=== PATIENT | female | born 1995 | race Hispanic/Latino ===

== ENCOUNTER 2017-09-15 01:28 | Emergency (ER) | payer SELFPAY ==
[2017-09-15 02:04] VITALS: PULSE 83; O2SAT 99
[2017-09-15 04:48] VITALS: BP 112/69; RESP 16; TEMP 98.2
--- NOTE | 2017-09-15 05:53 | ED PDOC ---
HPI: Psych/Substance Abuse Time Seen by Provider: 09/15/17 02:42 Chief Complaint (Nursing): Alcohol Ingestion Chief Complaint (Provider): Alcohol Intoxication ED Caveat: Intoxicated History Per: Patient History/Exam Limitations: intoxication Onset/Duration Of Symptoms: Hrs Current Symptoms Are (Timing): Still Present Additional Complaint(s): Liliana Campbell is a 21 year old female that was brought in by EMS for unsteady gait after alcohol consumption. Patient states that she was outside of her apartment when she was picked up by EMS. She reports that she bruised her knees but denies any head injury. Of Note: Patient states that she has a sober friend on the way to pick her up. Past Medical History Reviewed: Historical Data, Nursing Documentation, Vital Signs Vital Signs: Last Vital Signs Temp 98.2 F 09/15/17 03:30 Pulse 83 09/15/17 03:30 Resp 16 09/15/17 03:30 BP 112/69 09/15/17 03:30 Pulse Ox 99 09/15/17 03:30 - Medical History PMH: No Chronic Diseases - Family History Family History: States: Unknown Family Hx - Allergies Allergies/Adverse Reactions: Allergies Allergy/AdvReac Type Severity Reaction Status Date / Time No Known Allergies Allergy Verified 09/15/17 02:04 Review of Systems Review Of Systems: ROS cannot be obtained secondary to pt's inabilty to answer questions. Physical Exam - Reviewed Nursing Documentation Reviewed: Yes Vital Signs Reviewed: Yes - Physical Exam Appears: Positive for: Non-toxic, No Acute Distress Head Exam: Positive for: ATRAUMATIC, NORMOCEPHALIC Skin: Positive for: Normal Color, Warm Eye Exam: Positive for: EOMI, Normal appearance, PERRL Cardiovascular/Chest: Positive for: Regular Rate, Rhythm. Negative for: Murmur Respiratory: Positive for: Normal Breath Sounds. Negative for: Wheezing Gastrointestinal/Abdominal: Positive for: Normal Exam, Soft. Negative for: Tenderness Back: Positive for: Normal Inspection. Negative for: L CVA Tenderness, R CVA Tenderness Extremity: Positive for: Normal ROM, Other (Abrasion present to b/l knees). Negative for: Swelling Neurologic/Psych: Positive for: Alert, Oriented. Negative for: Motor/Sensory Deficits - ECG O2 Sat by Pulse Oximetry: 99 (RA) Pulse Ox Interpretation: Normal Medical Decision Making Medical Decision Making: Impression: Alcohol Intoxication Plan: * Patient is awake, alert, oriented x3, steady gait. Patient requires no further treatment in the ED at this time. Patient will be brought home by her friend. Stable for discharge. Clinical Impression: Alcohol Abuse Scribe Attestation: Documented by Lily Briggs, acting as a scribe for Vikas Brandt MD. Provider Scribe Attestation: All medical record entries made by the Scribe were at my direction and personally dictated by me. I have reviewed the chart and agree that the record accurately reflects my personal performance of the history, physical exam, medical decision making, and the department course for this patient. I have also personally directed, reviewed, and agree with the discharge instructions and disposition. Disposition - Clinical Impression Clinical Impression: Alcohol abuse - Patient ED Disposition Is Patient to be Admitted: No - Disposition Referrals: Alcoholics Anonymous [Outside] Disposition: Routine/Home Disposition Time: 03:00 Condition: STABLE Instructions: Alcohol Abuse and Alcoholism (DC) Forms: [employer] (German)
== END 2017-09-15 03:21 | disposition home or self-care (01) ==
LOC: H.ER 01:28
DX: F10.129 Alcohol abuse with intoxication, unspecified (principal)